=== PATIENT | male | born 1965 | race Caucasian/White ===

== ENCOUNTER → 2021-02-01 11:57 | Outpatient (CLI) | payer OTHER, SELFPAY ==
[2021-02-01 12:36] LABS: Add Manual Diff / Slide Review NO; Basophils Absolute Auto 100 /uL (0-100); Basophils Percent Auto 1.9 % (0-2); Eosinophils Absolute Auto 100 /uL (0-450); Eosinophils Percent Auto 2.6 % (2-4); Hematocrit 43.5 % (41-53); Hemoglobin 14.6 g/dL (13.5-17.5); Lymphocytes Absolute Auto 1800 /uL (1100-4500); Lymphocytes Percent Auto 33.4 % (25-40); Mean Corpuscular HGB Conc 33.5 % (30-36); Mean Corpuscular Hemoglobin 29.4 PG (26-34); Mean Corpuscular Volume 87.7 fL (80-100); Monocytes Absolute Auto 400 /uL (0-900); Monocytes Percent Auto 8.2 % (3-14); Neutrophils Absolute Auto 2900 /uL (1500-7000); Neutrophils Percent Auto 53.9 % (50-75); Platelet Count 180 X10^3/uL (150-400); Red Blood Cell Count 4.96 X10^6/uL (4.5-5.9); Red Cell Distribution Width 13.7 % (11.6-14.8); White Blood Cell Count 5.4 X10^3/uL (4.5-11.0)
[2021-02-01 13:08] LABS: Alanine Aminotransferase 28 IU/L (<50); Albumin 4.2 g/dL (3.5-5.0); Albumin Globulin Ratio 1.6 (1.0-2.8); Alkaline Phosphatase 54 U/L (38-126); Aspartate Aminotransferase 35 IU/L (17-59); BUN Creatinine Ratio 21.3 (6-22); Bilirubin Total 0.3 mg/dL (0.2-1.3); Blood Urea Nitrogen 16 mg/dL (9-20); Calcium 9.3 mg/dL (8.4-10.2); Carbon Dioxide 29 mmol/L (22-32); Chloride 103 mmol/L (98-107); Cholesterol 174 mg/dL (140-199); Estimated Glomerular Filt Rate > 60.0 mL/min (>60); Globulin 2.7 g/dL (1.7-4.1); Glucose 84 mg/dL (70-100); HDL Cholesterol 65 mg/dL (40-60); HEMOLYSIS < 15 (0-50); LDL Cholesterol Calculated 98 mg/dL (<100); Potassium 4.5 mmol/L (3.4-5.1); Sodium 136 mmol/L (137-145); Total Protein 6.9 g/dL (6.3-8.2); Triglycerides 54 mg/dL (35-150)
[2021-02-01 14:26] LABS: Thyroid Stimulating Hormone 1.82 uIU/mL (0.47-4.68)
== END ==
PROVIDERS: PCP Family Medicine; Referring Provider Family Medicine; Visit Provider Family Medicine
DX: Z13.220 Encounter for screening for lipoid disorders (principal)
CPT/HCPCS: 36415; 80053; 80061; 84443; 85025

== ENCOUNTER → 2021-03-08 11:02 | Outpatient (CLI) | payer OTHER, SELFPAY ==
[2021-03-08 14:25] LABS: COVID19 -Nasal RAPID Negative (Negative)
== END ==
PROVIDERS: PCP Family Medicine; Visit Provider Surgery
DX: Z20.822 Contact with and (suspected) exposure to COVID-19 (principal)
CPT/HCPCS: 87635; C9803

== ENCOUNTER 2021-03-09 08:13 | Day surgery (SDC) | payer OTHER, SELFPAY ==
[2021-03-09] VITALS (7 sets, daily range): BP systolic 99–131; BP diastolic 67–85; PULSE 74–97; RESP 10–18; TEMP 36.1–36.8; O2SAT 95–99; BMI 21.7
[2021-03-09] MEDS: LACTATED RINGERS 1,000 ML 100 ML IV (08:43)
--- NOTE | 2021-03-09 08:56 | PM.HP.1 ---
History of Present Illness History of Present Illness Date Patient Seen: 03/09/21 Time Patient Seen: 09:06 Chief complaint: SCREENING COLONOSCOPY Narrative: First colonoscopy, asymptomatic and no family history of colon cancer. Patient History Family & Social History Social History: household members family Tobacco & Substance use: Smoking Status Never smoker alcohol intake current alcohol intake frequency a few times a week Substance Use Type does not use Meds Home Medications and Allergies Home Medications Medication Instructions Recorded Confirmed Type No Known Home Medications 02/01/21 03/09/21 History Allergies Allergy/AdvReac Type Severity Reaction Status Date / Time No Known Drug Allergies Allergy Verified 02/01/21 11:16 Review of Systems Review of Systems Narrative: no cough, no change in bowel habits. no weight loss ROS: Yes All systems reviewed with the patient and are negative except as otherwise documented Exam Vital Signs (past 8 hours): - 03/09/21 08:30 Temperature 97.9 F Pulse Rate 97 H Respiratory Rate 12 Blood Pressure 131/85 Pulse Oximetry 95 Oxygen Delivery Method Room Air Const General: cooperative and healthy appearing [facility] Head: normocephalic and atraumatic Eyes General: appearance normal, both eyes and all related structures Conjunctivae: conjunctivae normal Neck Neck: trachea midline Resp Effort & Inspection: normal respiratory effort and able to speak in complete sentences Auscultation: clear to auscultation bilaterally Cardio Rate: regular rate Rhythm: regular rhythm GI Inspection: normal to inspection Palpation: soft Skin General: no rashes or lesions noted Neuro General: patient alert, patient awake and patient oriented x3 Extrem General: normal to inspection and full ROM Psych Appearance: grossly normal Judgment: judgment good Assessment & Plan Assessment & Plan narrative: screening colonoscopy low risk. Moderate sedation COVID-19 COVID-19 status: Negative Time Spent With Patient Time with patient: less than 15 minutes
--- NOTE | 2021-03-09 09:08 | PM.OP.ENDO ---
Operative Date/Time/Diagnoses Date of procedure: 03/09/21 Time of procedure: 09:10 Pre-op diagnosis: screening colonoscopy. ASA 1 Post-op diagnosis: same Procedure & Clinicians Study performed: colonoscopy with moderate sedation Same procedure as scheduled: Yes Indications: screening colonoscopy Surgeon: Elle Perez Procedure Notes SCOAP/Timeout: done prior to sedation Procedure in detail: Prep diagnosis: Screening colonoscopy Postop diagnosis: Same Operative procedure: Colonoscopy with moderate sedation Surgeon: Jennifer Perez MD Findings: Normal colonoscopy. Excellent bowel prep. ASA: 1 Anesthetic: Fentanyl and Versed, see nurse's note for dosing. Procedure: Patient placed in lateral position. Rectal exam performed showing normal tone, no masses. Scope was inserted into the rectum and advanced to the ileocecal valve with minimal difficulty. Insufflation and extraction of the scope, including retroflex in the rectum, shows normal colonoscopy. Impression: No polyps, no diverticuli. Plan: Repeat colonoscopy in 10 years unless otherwise indicated by change in clinical condition or family history Scope withdrawal time: 5 min Sedation minutes: 6 Specimen(s): none sent Complications: none Impression: no polyps, no diverticula. sensitive colon to pressure demonstrated by vagaling Post-procedure Recommendations: Colonscopy in 10 years and Continue medication(s) Plan for aftercare: home. no restrictions Follow up: as needed Disposition: PACU
[2021-03-09] MEDS: fentaNYL 250 MCG/5 ML INJ IV (09:13)
[2021-03-09] MEDS: MIDAZOLAM 5 MG/5 ML VIAL IV (09:14)
== END 2021-03-09 10:51 | disposition home or self-care (01) ==
PROVIDERS: PCP Family Medicine; Referring Provider Surgery; Visit Provider Surgery
PROC: 0DJD8ZZ Inspection of Lower Intestinal Tract, Via Natural or Artificial Opening Endoscopic (ICD-10-PCS; CPT 45378; principal; 2021-03-09 09:15)
DX: Z12.11 Encounter for screening for malignant neoplasm of colon (principal)
CPT/HCPCS: 45378; 99152; J2250; J3010

== ENCOUNTER 2023-11-09 10:56 | Emergency (ER) | payer OTHER, SELFPAY ==
[2023-11-09 11:18] VITALS: BP 135/85; PULSE 87; RESP 18; TEMP 36.6; O2SAT 99; BMI 21.9
[2023-11-09] MEDS: KETOROLAC 30 MG/ML VIAL IM (11:58)
--- NOTE | 2023-11-09 12:15 | DI.CT.S_ITS ---
PROCEDURE: CT LUMBAR SPINE WO CON INDICATIONS: low back pain, hx bulging disc, no LE weakness/numbness TECHNIQUE: Noncontrast 3 mm thick sections acquired from the T12 level to the sacrum. Sagittal and coronal reformats were constructed. For radiation dose reduction, the following was used: automated exposure control. COMPARISON: None. FINDINGS: Image quality: Excellent. Bones: There is normal bony alignment. No acute vertebral body compression fractures. No suspicious lytic or blastic bony lesions. No pars defects. There is a probable peripherally calcified disc extrusion within the right lateral recess at L4-L5. Multilevel disc space narrowing and endplate osteophyte formation. Soft tissues: No retroperitoneal masses or hematomas. Visualized aorta is normal in caliber. IMPRESSION: 1. Probable L4-L5 disc extrusion with associated neural compression. Nonemergent outpatient follow-up MRI is recommended for further assessment. No further emergent imaging is indicated. Dictated by: Gigi Guidry M.D. on 11/09/2023 at 12:39 Approved by: Gigi Guidry M.D. on 11/09/2023 at 12:40
--- NOTE | 2023-11-09 12:34 | PC.NURSE ---
sensation, circulation, movement intact. Able to get on and off the floor without assist.
--- NOTE | 2023-11-09 12:54 | ED.BACK ---
HPI - Back Pain/Injury <Flores Willett PA-C - Last Filed: 11/09/23 15:40> General Chief Complaint: Back Pain/Injury Stated Complaint: lower back pain Time Seen by Provider: 11/09/23 11:42 Source: patient History of Present Illness HPI Narrative: Patient is a 58-year-old male who reports a bulging disc and spine surgery approximately 20 years ago. His last spinal imaging was prior to the surgery. Over the past 20 years, he has had intermittent flares of low back pain which he treats with rest, stretching, and a lumbar brace. Yesterday afternoon his back started acting up, he does not know of any precipitating factors or injury. Overnight and this morning he took several low doses of Tylenol and ibuprofen without much relief. He also notes minimal appetite last night and did not eat anything this morning. He felt nauseous in the waiting room and vomited once in triage. Denies fever or chills. Denies numbness, tingling, shooting pains or weakness in his lower he is. He denies loss of bowel or bladder control or saddle anesthesia. He has no urinary symptoms and denies history of kidney stones. Related Data Previous Rx's Medication Instructions Recorded cyclobenzaprine 5 mg tablet 5 mg PO TID PRN muscle spasm #14 11/09/23 tabs ondansetron 4 mg disintegrating 4 mg PO Q6-8H PRN nausea and 11/09/23 tablet vomiting #10 tabs oxycodone 5 mg tablet 5 mg PO Q4-6H PRN pain #10 tabs 11/09/23 Allergies Allergy/AdvReac Type Severity Reaction Status Date / Time No Known Drug Allergies Allergy Verified 11/09/23 11:30 Review of Systems <Flores Willett PA-C - Last Filed: 11/09/23 15:40> Review of Systems ROS Unobtainable: All systems reviewed & are unremarkable except as noted in HPI and below Patient History <Flores Willett PA-C - Last Filed: 11/09/23 15:40> Social History marital status: unmarried,single household members: family Smoking Status: Never smoker alcohol intake: current substance use type: does not use Smoking Status: Never smoker alcohol intake frequency: a few times a week Substance Use Type: does not use Exam <Flores Willett PA-C - Last Filed: 11/09/23 15:40> Narrative Exam Narrative: GENERAL: 58 year old patient appears stated age. Well-developed patient, found kneeling on the floor, wearing back brace. NEURO: AOx3. HEAD: Atraumatic. Normocephalic. EYES: Pupils equal round and reactive. Extraocular motions intact. No scleral icterus. No injection or drainage. ENT: Nose without bleeding or purulent drainage. Airway patent. NECK: Trachea midline. Non tender CARDIOVASCULAR: Regular rate and rhythm without murmurs, gallops, or rubs. RESPIRATORY: Clear to auscultation. Breath sounds equal bilaterally. No wheezes, rales, or rhonchi. GASTROINTESTINAL: Abdomen soft, non-tender, nondistended. EXTREMITIES: No edema or joint tenderness. SKIN: No rash or erythema of visible areas SPINE: No midline tenderness or step-offs. Well healed midline lumbar surgical scar. Focal tenderness over the right low back and SI joint. This area is tender to palpation although he notes the pain is deeper inside. Patient ambulates steadily. 5/5 strength in his bilateral lower extremities with good pulses, normal capillary refill, sensation intact. Initial Vital Signs Initial Vital Signs: Vital Signs Temperature 98 F 11/09/23 11:18 Pulse Rate 87 11/09/23 11:18 Respiratory Rate 18 11/09/23 11:18 Blood Pressure 135/85 11/09/23 11:18 Pulse Oximetry 99 11/09/23 11:18 Oxygen Delivery Method Room Air 11/09/23 11:18 <Didi Malone DO - Last Filed: 11/10/23 07:44> Initial Vital Signs Initial Vital Signs: Vital Signs Temperature 98 F 11/09/23 11:18 Pulse Rate 87 11/09/23 11:18 Respiratory Rate 18 11/09/23 11:18 Blood Pressure 135/85 11/09/23 11:18 Pulse Oximetry 99 11/09/23 11:18 Oxygen Delivery Method Room Air 11/09/23 11:18 Course <Flores Willett PA-C - Last Filed: 11/09/23 15:40> Orders Ordered: Discontinued Medications Sodium Chloride (Normal Saline 0.9%) 1,000 mls @ 1,000 mls/hr IV BOLUS ONE Stop: 11/09/23 14:35 Last Infusion: 11/09/23 15:00 Dose: Infused Documented By: Admin: 11/09/23 13:50 Dose: 1,000 mls/hr Documented By: JOSEFINA Ketorolac Tromethamine (Ketorolac 30 Mg/Ml Vial) 30 mg IM NOW ONE Stop: 11/09/23 11:54 Last Admin: 11/09/23 11:58 Dose: 30 mg Documented By: STEPHANIE Metoclopramide HCl (Metoclopramide 10 Mg/2 Ml Inj) 10 mg IV NOW ONE Stop: 11/09/23 13:37 Last Admin: 11/09/23 13:49 Dose: 10 mg Documented By: JOSEFINA Ondansetron HCl (Ondansetron 4 Mg Odt) 4 mg PO NOW ONE Stop: 11/09/23 12:59 Last Admin: 11/09/23 13:01 Dose: 4 mg Documented By: STEPHANIE Vital Signs Vital signs: Vital Signs - 8 hr 11/09/23 11:18 11/09/23 15:21 Temperature 98 F Pulse Rate 87 88 Respiratory Rate 18 14 Blood Pressure 135/85 133/78 Pulse Oximetry 99 97 Oxygen Delivery Method Room Air Room Air <Didi Malone DO - Last Filed: 11/10/23 07:44> Orders Ordered: Discontinued Medications Sodium Chloride (Normal Saline 0.9%) 1,000 mls @ 1,000 mls/hr IV BOLUS ONE Stop: 11/09/23 14:35 Last Infusion: 11/09/23 15:00 Dose: Infused Documented By: Admin: 11/09/23 13:50 Dose: 1,000 mls/hr Documented By: JOSEFINA Ketorolac Tromethamine (Ketorolac 30 Mg/Ml Vial) 30 mg IM NOW ONE Stop: 11/09/23 11:54 Last Admin: 11/09/23 11:58 Dose: 30 mg Documented By: STEPHANIE Metoclopramide HCl (Metoclopramide 10 Mg/2 Ml Inj) 10 mg IV NOW ONE Stop: 11/09/23 13:37 Last Admin: 11/09/23 13:49 Dose: 10 mg Documented By: JOSEFINA Ondansetron HCl (Ondansetron 4 Mg Odt) 4 mg PO NOW ONE Stop: 11/09/23 12:59 Last Admin: 11/09/23 13:01 Dose: 4 mg Documented By: STEPHANIE Vital Signs Vital signs: Vital Signs - 8 hr 11/09/23 11:18 11/09/23 15:21 Temperature 98 F Pulse Rate 87 88 Respiratory Rate 18 14 Blood Pressure 135/85 133/78 Pulse Oximetry 99 97 Oxygen Delivery Method Room Air Room Air MDM - Back Pain/Injury <Flores Willett PA-C - Last Filed: 11/09/23 15:40> Lab Data 11/09/23 13:45 11/09/23 13:45 Labs: Lab Results 11/09/23 11/09/23 11/09/23 Range/Units 13:45 14:40 15:00 WBC 9.5 (4.5-11.0) X10^3/uL RBC 5.58 (4.5-5.9) X10^6/uL Hgb 16.9 (13.5-17.5) g/dL Hct 49.6 (41-53) % MCV 88.8 (80-100) fL MCH 30.3 (26-34) PG MCHC 34.1 (30-36) % RDW 13.3 (11.6-14.8) % Plt Count 241 (150-400) X10^3/uL Neut % (Auto) 74.8 (50-75) % Lymph % (Auto) 21.3 L (25-40) % [place] % (Auto) 2.9 L (3-14) % Eos % (Auto) 0.4 L (2-4) % Baso % (Auto) 0.6 (0-2) % Neut # (Auto) 7100 H (4331-6978) /uL Lymph # (Auto) 2000 (4236-3257) /uL [place] # (Auto) 300 (0-900) /uL Eos # (Auto) 0 (0-450) /uL Baso # (Auto) 100 (0-100) /uL Sodium 137 (137-145) mmol/L Potassium 4.3 (3.4-5.1) mmol/L Chloride 100 (98-107) mmol/L Carbon Dioxide 27 (22-32) mmol/L BUN 15 (9-20) mg/dL Creatinine 0.80 (0.66-1.25) mg/dL Estimated GFR > 60 (>60) mL/min BUN/Creatinine Ratio 18.8 (6-22) Glucose 119 H (70-100) mg/dL Calcium 10.3 H (8.4-10.2) mg/dL Total Bilirubin 1.0 (0.2-1.3) mg/dL AST 38 (17-59) IU/L ALT 30 (<50) IU/L Alkaline Phosphatase 79 (38-126) U/L Total Protein 8.9 H (6.3-8.2) g/dL Albumin 5.0 (3.5-5.0) g/dL Globulin 3.9 (1.7-4.1) g/dL Albumin/Globulin Ratio 1.3 (1.0-2.8) Lipase 109 (23-300) U/L Urine RBC 0-1/hpf (0-5/HPF) Urine WBC 0-1/hpf (0-5/HPF) Ur Squamous Epith Cells 1-5 /hpf (0-5/HPF) Urine Bacteria Few (2-10) H (None) Ur Culture Indicated? Cult not indicated SARS-CoV-2 (PCR) Negative (Negative) Urine Dip Bedside Urine Glucose Negative Bedside Urine Bilirubin - Negative Bedside Urine Ketone ++ 40 Urine Specific [place] 1.020 Bedside Urine Occult Blood - Negative Bedside Urine pH 6.5 Bedside Urine Protein +/- 15 Bedside Urine Urobilinogen - Negative Bedside Urine Nitrite - Negative Bedside Urine Leukocytes - Negative Esterase Imaging Data CT lumbar: Radiologist's Impression: PROCEDURE: CT LUMBAR SPINE WO CON INDICATIONS: low back pain, hx bulging disc, no LE weakness/numbness TECHNIQUE: Noncontrast 3 mm thick sections acquired from the T12 level to the sacrum. Sagittal and coronal reformats were constructed. For radiation dose reduction, the following was used: automated exposure control. COMPARISON: None. FINDINGS: Image quality: Excellent. Bones: There is normal bony alignment. No acute vertebral body compression fractures. No suspicious lytic or blastic bony lesions. No pars defects. There is a probable peripherally calcified disc extrusion within the right lateral recess at L4-L5. Multilevel disc space narrowing and endplate osteophyte formation. Soft tissues: No retroperitoneal masses or hematomas. Visualized aorta is normal in caliber. IMPRESSION: 1. Probable L4-L5 disc extrusion with associated neural compression. Nonemergent outpatient follow-up MRI is recommended for further assessment. No further emergent imaging is indicated. Dictated by: Gigi Guidry M.D. on 11/09/2023 at 12:39 Approved by: Gigi Guidry M.D. on 11/09/2023 at 12:40 MDM Narrative Medical decision making narrative: Multiple etiologies for patient's symptoms considered including, but not limited to: Fracture, dislocation, disc herniation, cauda equina. Patient has no fever or headache concerning for meningitis. Patient has no lower extremity weakness, saddle anesthesia loss control of bowel or bladder concerning for cauda equina. He has no history of trauma to suggest fracture. Discussed limitations of imaging modalities available in the emergency room based on his symptoms. Patient would like to go ahead and obtain a CT of his lumbar spine to gather more information as he is not had spinal imaging in many years. CT of the lumbar spine shows L4-L5 disc extrusion with accompanying neural compression. An outpatient MRI is recommended. Discussed these findings with the patient. He is disappointed that he can not get an MRI today in the emergency room but understands that he will need to follow up with his primary care, who he is not seen in several years but has an appointment with next week. At this time, patient started vomiting. He reports first feeling nauseous in the waiting room and vomited once prior in triage. He was given ondansetron but continued to vomit. He denies abdominal pain, CVA tenderness, diarrhea or constipation. Decision made to administer IV fluids, metoclopramide and obtain labs and urine. His urine does not have any blood in it or evidence of infection. He has no history of kidney stones. Discussed evaluating with CT for possible kidney stones, although I think this is unlikely given no past history and no blood in his urine, in case this is what is causing some of his more severe pain and nausea. Patient feels like he would like to wait on this. He feels okay to discharge home with pain medication including oxycodone, cyclobenzaprine and nausea medication. Patient advised that if he continues to worsen, develops new symptoms, if his pain is not under control or he has intractable nausea the we will need to return to the emergency room. I did contact Dr. Guzman's team to notify them the patient was in the emergency room and request a timely follow-up to discuss outpatient MRI. Patient also requested a COVID test, although he has no known exposures and no symptoms aside from back pain and nausea. Rapid COVID test was done and was negative. Patient's symptoms improved over duration of stay with above-stated therapies. Findings and discharge diagnosis discussed with patient/family followed by verbalization of understanding Return precautions discussed with patient/family whom verbalize understanding of diagnosis and plan <Didi Malone, DO - Last Filed: 11/10/23 07:44> Lab Data Labs: Lab Results 11/09/23 11/09/23 11/09/23 Range/Units 13:45 14:40 15:00 WBC 9.5 (4.5-11.0) X10^3/uL RBC 5.58 (4.5-5.9) X10^6/uL Hgb 16.9 (13.5-17.5) g/dL Hct 49.6 (41-53) % MCV 88.8 (80-100) fL MCH 30.3 (26-34) PG MCHC 34.1 (30-36) % RDW 13.3 (11.6-14.8) % Plt Count 241 (150-400) X10^3/uL Neut % (Auto) 74.8 (50-75) % Lymph % (Auto) 21.3 L (25-40) % [place] % (Auto) 2.9 L (3-14) % Eos % (Auto) 0.4 L (2-4) % Baso % (Auto) 0.6 (0-2) % Neut # (Auto) 7100 H (2533-7681) /uL Lymph # (Auto) 2000 (7898-9234) /uL [place] # (Auto) 300 (0-900) /uL Eos # (Auto) 0 (0-450) /uL Baso # (Auto) 100 (0-100) /uL Sodium 137 (137-145) mmol/L Potassium 4.3 (3.4-5.1) mmol/L Chloride 100 (98-107) mmol/L Carbon Dioxide 27 (22-32) mmol/L BUN 15 (9-20) mg/dL Creatinine 0.80 (0.66-1.25) mg/dL Estimated GFR > 60 (>60) mL/min BUN/Creatinine Ratio 18.8 (6-22) Glucose 119 H (70-100) mg/dL Calcium 10.3 H (8.4-10.2) mg/dL Total Bilirubin 1.0 (0.2-1.3) mg/dL AST 38 (17-59) IU/L ALT 30 (<50) IU/L Alkaline Phosphatase 79 (38-126) U/L Total Protein 8.9 H (6.3-8.2) g/dL Albumin 5.0 (3.5-5.0) g/dL Globulin 3.9 (1.7-4.1) g/dL Albumin/Globulin Ratio 1.3 (1.0-2.8) Lipase 109 (23-300) U/L Urine RBC 0-1/hpf (0-5/HPF) Urine WBC 0-1/hpf (0-5/HPF) Ur Squamous Epith Cells 1-5 /hpf (0-5/HPF) Urine Bacteria Few (2-10) H (None) Ur Culture Indicated? Cult not indicated SARS-CoV-2 (PCR) Negative (Negative) Urine Dip Bedside Urine Glucose Negative Bedside Urine Bilirubin - Negative Bedside Urine Ketone ++ 40 Urine Specific [place] 1.020 Bedside Urine Occult Blood - Negative Bedside Urine pH 6.5 Bedside Urine Protein +/- 15 Bedside Urine Urobilinogen - Negative Bedside Urine Nitrite - Negative Bedside Urine Leukocytes - Negative Esterase Discharge Plan Departure Patient Disposition: Home Clinical Impression: Low back pain Qualifiers: Chronicity: acute Back pain laterality: bilateral Sciatica presence: without sciatica Qualified Code(s): M54.50 - Low back pain, unspecified Instructions: DI for Low Back Pain Activity Restrictions/Additional Instructions: *You have been diagnosed with acute low back pain. Your CT shows: Probable L4-L5 disc extrusion with associated neural compression. Nonemergent outpatient follow-up MRI is recommended for further assessment. No further emergent imaging is indicated. I have sent a message to Dr. Guzman's office to see if they can schedule use sooner for follow up with the primary care doctor. They will reach out to you. In the meantime, I suggest ice, rest, gentle stretching, walking as tolerated. I will send prescriptions for eye muscle relaxer as well as an opiate pain medication to your pharmacy. Please take Tylenol and ibuprofen in addition and save the opiate medicine for more severe pain. It is generally safe to take 3-4 g of Tylenol over 24 hour period and 2400 mg of ibuprofen over 24 hours. You have been prescribed a short course of narcotic medications. These are potentially dangerous and addictive medications that should be used carefully. While on these medications you cannot drive or operate heavy machinery. Do not drink alcohol or use other sedative medications while you are taking this medication. Additionally, you cannot sign legal documents or perform any duties such as this. Many people get constipated on narcotic medications so it would be advisable to discuss stool softeners with the pharmacist when you tow picker your prescription. Please understand that we cannot provide further refills of narcotics or controlled substances through the ED and your pain management will need to be through your Primary Care Provider. *What to do: *Please continue to take your regular medications as directed. [x] New medication prescriptions sent to your pharmacy: [ [facility]] [ ] New medication written as a paper prescription [ ] No new medications given *Please follow up with your primary care provider in 2-3 days, call for an appointment. Let them know you were seen in the Emergency Department and that we ask that you be seen in follow up. We will electronically transmit a record of today's note if your PCP is in our system *If you do not have a primary care provider please contact the [facility] Resource line at [phone]. They will ask some questions about your medical history and help get you set up with a doctor in the community. *Return to Emergency Department if you should have any new, worsening or concerning symptoms, such as [fever greater than 101 F, shaking chills, worsening pain, persistent vomiting or other concerning symptoms]. Prescriptions: New cyclobenzaprine 5 mg tablet 5 mg PO TID PRN (Reason: muscle spasm) Qty: 14 0RF oxycodone 5 mg tablet 5 mg PO Q4-6H PRN (Reason: pain) Qty: 10 0RF ondansetron 4 mg tablet,disintegrating 4 mg PO Q6-8H PRN (Reason: nausea and vomiting) Qty: 10 0RF Referrals: Francisco Guzman MD [Primary Care Provider] - Stand Alone Forms: Patient Portal/API ED Sign-out <Didi Malone DO - Last Filed: 11/10/23 07:44> Cosign ED Attending Cosignature Attestation: I was available for consultation.
--- NOTE | 2023-11-09 12:58 | PC.NURSE ---
Pt w/ vomiting for undigested food / phlem. Pt denies abd pain/fever/diaphorisis/sob. States he does not usually get vomiting w/ pain. ERWIN Willett made aware and order obtained for zofran. Pt appears well other than pain in back.
[2023-11-09] MEDS: ONDANSETRON 4 MG ODT PO (13:01)
--- NOTE | 2023-11-09 13:45 | PC.NURSE ---
Pt continues to vomit after zofran. Will start IV and give more medications
[2023-11-09] MEDS: METOCLOPRAMIDE 10 MG/2 ML INJ IV (13:49)
[2023-11-09] MEDS: SODIUM CHLORIDE 0.9% 1,000 ML 1000 ML IV (13:50)
[2023-11-09 13:58] LABS: Add Manual Diff / Slide Review NO; Basophils Absolute Auto 100 /uL (0-100); Basophils Percent Auto 0.6 % (0-2); Eosinophils Absolute Auto 0 /uL (0-450); Eosinophils Percent Auto 0.4 % (2-4); Hematocrit 49.6 % (41-53); Hemoglobin 16.9 g/dL (13.5-17.5); Lymphocytes Absolute Auto 2000 /uL (1100-4500); Lymphocytes Percent Auto 21.3 % (25-40); Mean Corpuscular HGB Conc 34.1 % (30-36); Mean Corpuscular Hemoglobin 30.3 PG (26-34); Mean Corpuscular Volume 88.8 fL (80-100); Monocytes Absolute Auto 300 /uL (0-900); Monocytes Percent Auto 2.9 % (3-14); Neutrophils Absolute Auto 7100 /uL (1500-7000); Neutrophils Percent Auto 74.8 % (50-75); Platelet Count 241 X10^3/uL (150-400); Red Blood Cell Count 5.58 X10^6/uL (4.5-5.9); Red Cell Distribution Width 13.3 % (11.6-14.8); White Blood Cell Count 9.5 X10^3/uL (4.5-11.0)
[2023-11-09 14:26] LABS: Alanine Aminotransferase 30 IU/L (<50); Albumin Globulin Ratio 1.3 (1.0-2.8); Alkaline Phosphatase 79 U/L (38-126); Aspartate Aminotransferase 38 IU/L (17-59); BUN Creatinine Ratio 18.8 (6-22); Blood Urea Nitrogen 15 mg/dL (9-20); Calcium 10.3 mg/dL (8.4-10.2); Carbon Dioxide 27 mmol/L (22-32); Chloride 100 mmol/L (98-107); Estimated Glomerular Filt Rate > 60 mL/min (>60); Globulin 3.9 g/dL (1.7-4.1); Glucose 119 mg/dL (70-100); HEMOLYSIS < 15 (0-50); Lipase 109 U/L (23-300); Potassium 4.3 mmol/L (3.4-5.1); Sodium 137 mmol/L (137-145); Total Protein 8.9 g/dL (6.3-8.2)
[2023-11-09 15:16] LABS: Bacteria Urine Few (2-10); Culture Indicated Urine Cult Not Indicated; RBC Urine 0-1/HPF (0-5/HPF); Squamous Epithelial Cell Urine 1-5 /HPF (0-5/HPF); WBC Urine 0-1/HPF (0-5/HPF)
[2023-11-09 15:19] LABS: COVID19 -Nasal RAPID Negative (Negative)
[2023-11-09 15:21] VITALS: BP 133/78; PULSE 88; RESP 14; O2SAT 97
== END 2023-11-09 15:21 | disposition home or self-care (01) ==
PROVIDERS: Emergency Provider Physician Assistant; PCP Family Medicine
DX: M54.50 Low back pain, unspecified (principal)
CPT/HCPCS: 36415; 72131; 80053; 81003; 81015; 83690; 85025; 87635; 96361; 96372; 96374; 99284; C9803; J1885; J2765

== ENCOUNTER 2024-01-01 08:15 | Outpatient (RCR) | payer OTHER, SELFPAY ==
--- NOTE | 2023-12-22 17:33 | PT.OIE ---
Current Diagnoses Radiculopathy, lumbar region (12/22/23) Low back pain, unspecified (12/22/23) Anesthesia of skin (12/22/23) Other specified postprocedural states (12/22/23) Visit Care Team Role Provider Type Francisco Guzman MD Attending Provider Physician Family Provider Primary Care Provider Referring Provider Specialty: [facility] Practice Address: [address] [place] [address], [address], [facility] Email: [email or web address] Physical Therapy Initial Evaluation PT-OP-A Visit Information Start: 12/22/23 12:14 Freq: Status: Active Protocol: Document 12/22/23 13:06 NM (Rec: 12/22/23 14:19 NM [id number]) Out-Patient Physical Therapy Visit Information Visit Information Visit Type Initial Evaluation Visit Start Time 13:05 Visit Stop Time 13:45 Visit Number 1 Evaluation Information Evaluation Date 12/22/23 Precautions Precautions hx lumbar surgery PT-OP-B Current Condition Start: 12/22/23 12:14 Freq: Status: Active Protocol: Document 12/22/23 13:06 NM (Rec: 12/22/23 14:19 NM [id number]) Current Condition History of Current Condition Onset Date October 2023 Current Complaints pain, muscle spasms, decreased activity tolerance History of Current Condition Pt presents with low back pain beginning in October 2023. His back just spasmed and led to unbelievable B pain. He reports that he was in bed; he was unable to sit up, he had to crawl out of bed and on the ground. He was unable to walk for 4 days, only crawl, reaching up he felt like a disc exploded. He had numbness and tingling in his R glute; numb 7-10 days in R hip/glute. He began vomiting He went to the ED, did a CT ( looks normal). He went home and a couple of days later, everything felt fine. He reports that he has different symptoms now. Beltline pain ( just below) on the L side, beginning 2-3 days ago. He now feels like he's 95% better. He is using an inversion table , stretching, walking, exercise bike. He reports that he still has a little decreased sensation. Hx of back injuries in high school, Nov 2007 microdiscectomy L1-L2 . He is very active (snow mobile, mtn bike) PT-OP-C Subjective Start: 12/22/23 12:14 Freq: Status: Active Protocol: Document 12/22/23 13:06 NM (Rec: 12/22/23 14:19 NM [id number]) OP-PT Subjective Patient Comments Patient Comments see hx above for pt report Patient Questionnaires Oswestry Low Back Index Oswestry Score 20/50 OP-PT Pain Assessment Pain Assessment Grid Paper Pain Assessment Grid Completed Yes Location Lumbar spine Pain Location Details L beltline pain near L4-5 Intensity 0 Scale Used Numeric (0 - 10) Description Sharp Description- Other worst 3/10 Frequency Intermittent Radiating Location none, local Pain Aggravating Factors Position,Changing Position, Walking,Bending,Lifting, Coughing Other Pain Aggravating Factors extension, posture, twisting Pain Alleviating Factors Medication Other Pain Alleviating Factors flexion, inversion table, stretches Home Pain Medication Use Pain Medications Used Yes: ibuprofen PT-OP-E Functional Tests Start: 12/22/23 12:14 Freq: Status: Active Protocol: Document 12/22/23 13:06 NM (Rec: 12/22/23 17:24 NM [id number]) Functional Tests 30 Second Sit to Stand Test Score 21 Comments no pain reported Other Forward Trunk Flexion Test Name of Test measured fingertips to floor, legs straight Score 8 Comment reports hamstring stretch PT-OP-F Manual Assessment Start: 12/22/23 12:14 Freq: Status: Active Protocol: Document 12/22/23 13:06 NM (Rec: 12/22/23 17:24 NM [id number]) Manual Assessments Soft Tissue Assessment Soft Tissue Mobility Assessment Decreased B hamstring length. Minimal soft tissue restrictions of B lumbar paraspinals, including QL/ erector spinae. Joint Mobility Assessment Joint Mobility Assessment Minimal tenderness reported with posterior-anterior springing of lumbar spinous processes near L4-L5, normal mobility. Full trunk mobility PT-OP-G Mobility & Gait Start: 12/22/23 12:14 Freq: Status: Active Protocol: Document 12/22/23 13:06 NM (Rec: 12/22/23 17:24 NM [id number]) OP Gait Assessment Gait Gait Assistance Required: Independent Distance (Feet) 150 Assistive Devices Assistive Device None Gait Deviations General Gait Pattern Lateral Trunk Lean Factors Limiting Gait Function Factors Limiting Gait Function Pain Comments Gait Comments Slight L trunk shift PT-OP-H Neuro Start: 12/22/23 12:14 Freq: Status: Active Protocol: Document 12/22/23 13:06 NM (Rec: 12/22/23 17:24 NM [id number]) Sensation Evaluation Gross Sensation Sensation Description Paresthesia Comments Summary Comments Decreased light touch sensation along R lateral hip and glute, all other dermatomes are bilaterally and equally intact to light touch sensation PT-OP-J Posture/Palpation/Skin Start: 12/22/23 12:14 Freq: Status: Active Protocol: Document 12/22/23 13:06 NM (Rec: 12/22/23 17:24 NM [id number]) Posture Evaluation Position Standing Evaluation View Lateral Head/C-Spine Posture Forward Head Thorax Posture (R) Prominent L-Spine Posture Increased Lordosis,Shifted Left Shoulder Posture (L) Forward,(R) Forward Pelvis Posture Anteriorly Tilted Weight Distribution Balanced Hip Posture (L) Externally Rotated,(R) Externally Rotated Knee Posture (L) Genu Valgus,(R) Genu Valgus Patellar Posture (L) Superior,(R) Superior Palpation Assessment Location Lumbar spine Palpation Location paraspinals, glutes Palpation Findings Soft Tissue Tightness,Spasm Palpation Details Lumbar paraspinals with mild spasm to palpation, L>R. Minimal tenderness at L4-L5, L >R Skin Assessment Incisional Assessment Incision Appearance/Comments Incision from previous surgery near lower lumbar spine PT-OP-K Range of Motion Start: 12/22/23 12:14 Freq: Status: Active Protocol: Document 12/22/23 13:06 NM (Rec: 12/22/23 17:24 NM [id number]) Lumbar Spine Range of Motion Lumbar Spine Active Percentage Testing Position Standing Flexion 80 Extension 100 Rotation Left 8 Rotation Right 8 Lateral Flexion Left 75 Lateral Flexion Right 100 ROM Limitations Soft Tissue Tightness,Pain Comments L lateral flexion to 75% of thigh, reproduces pain in L lumbar spine. Pain with returning to neutral after R lateral flexion. Reports hamstring stretch with lumbar flexion Hip Goniometric Range of Motion Hip ROM Limitations Comments B hamstring length: 130 deg PT-OP-L Special Tests Start: 12/22/23 12:14 Freq: Status: Active Protocol: Document 12/22/23 13:06 NM (Rec: 12/22/23 17:24 NM [id number]) Special Tests Lumbar Spine Special Tests Distraction Test Results + Comments symptom relief Straight Leg Raise Test Results + Comments bilaterally reproduces concordant pain Slump Test Results - Cantu/Quadrant Test Results - PT-OP-M Strength Start: 12/22/23 12:14 Freq: Status: Active Protocol: Document 12/22/23 13:06 NM (Rec: 12/22/23 17:24 NM [id number]) Trunk Strength Trunk Manual Muscle Testing Testing Position standing, supine Flexion 5 Normal Extension 5 Normal Rotation Left 5 Normal Rotation Right 5 Normal Lateral Flexion Left 5 Normal Lateral Flexion Right 5 Normal Comments No pain with resisted motions. 5/5 trunk flexion fwd/ obliques. Plank on elbows 30 sec before hips begin dropping . Prone trunk and extension reproduces pain Hip Strength Hip Manual Muscle Testing Right Flexion (L2) 5 Normal Extension (S1) 4 Good Abduction 5 Normal Adduction 5 Normal External Rotation 5 Normal Internal Rotation 5 Normal Comments No pain reproduced with resisted motion Left Flexion (L2) 5 Normal Extension (S1) 4 Good Abduction 4 Good Adduction 5 Normal External Rotation 5 Normal Internal Rotation 4 Good Comments Lumbar spine pain reproduced with extension and hip IR Knee Strength Knee Manual Muscle Testing Right Flexion (S2) 5 Normal Extension (L3) 5 Normal Left Flexion (S2) 5 Normal Extension (L3) 5 Normal Ankle/Foot Strength Ankle and Foot Manual Muscle Testing Left Dorsiflexion (L4) 5 Normal Plantarflexion (S1) 5 Normal Right Dorsiflexion (L4) 5 Normal Plantarflexion (S1) 5 Normal PT-OP-Q Treatments Start: 12/22/23 12:14 Freq: Status: Active Protocol: Document 12/22/23 13:06 NM (Rec: 12/22/23 17:24 NM [id number]) Therapeutic Exercises Sitting Exercises Hamstring stretch Sitting Exercise Name with gentle trunk flex, heel propped on ground Side bilateral Reps/Minutes 1x30 Comments reports good stretch, no low back pain reproduced; cued gentle stretch Self-Care/Home Management Treatment Education Patient Education Home Exercise Program,Pain Management Other Education 8 min: PT educated pt on modalities for pain relief, HEP, exam findings, POC. Pt verbalizes understanding PT-OP-T Assessment and Plan Start: 12/22/23 12:14 Freq: Status: Active Protocol: Document 12/22/23 13:06 NM (Rec: 12/22/23 17:24 NM [id number]) Physical Therapy Assessment Rehab Potential Rehabilitation Potential Good Evaluation Complexity Number of Personal Factors/Comorbidities 1-2 Number of Body Systems Impaired 1-2 Clinical Presentation at Evaluation Stable Impairments Impairments Activity Tolerance,Functional Activities,Functional Mobility ,Gait,Pain,Posture,ROM, Sensation,Soft Tissue Mobility ,Strength Goals Five Impairment ROM Impairment L lumbar lateral flexion 75% of ROM, painful Clinical Support Nurse Goal (LTG) Pt will increase L lateral flexoin AROM to >75% with pain of 3 or less in order to demonstrate improved activity tolerance and QOL LTG Duration 6 weeks Four Impairment ROM Impairment Trunk fwd flexion ROM 80% or fingers 8 from ground in standing Prison Goal (LTG) Pt will improve trunk flexion ROM to <8 from fingertips to the ground in order to demonstrate increased trunk ROM and flexibility for return to sports LTG Duration 6 weeks Three Impairment ROM Impairment B hamstring length 130 deg Prison Goal (LTG) Pt will improve B hamstring length to at least 150 deg in order for better activity tolerance LTG Duration 6 weeks Two Impairment strength Impairment plank on elbows 30 seconds Prison Goal (LTG) Pt will be able to perform a plank on elbows for at least 45 seconds in order to demonstrate improved core and lumbar extensor strength LTG Duration 6 weeks One Impairment function Impairment Oswestry 20/50 Clinical Support Nurse Goal (LTG) Pt will decrease Oswestry score by at least 9 points (1 MCID) in order to demonstrate improved activity tolerance and ROM. LTG Duration 6 weeks Assessment Summary Assessment Pt is a 58 y.o. male presenting with B lumbar spine pain beginning in October 2023. Pain is discogenic in nature, currently L>R, localized to the trunk. Pt has a hx of low back pain and a previous microdiscectomy. Lumbar flexion and L lateral flexion are the most limited ROM, with pain only with L lateral flexion. Pain is reproduced during hip extension, trunk extension in prone with hip extension, and during hip IR AROM. He is tender to palpation along L4- L5 spinous processes and demonstrates lumbar paraspinal muscle spasms. Pt has positive straight leg raise test and symptoms are relieved with distraction. Pt is very active and demonstrates good abdominal and trunk strength; he is able to perform a plank for 30 seconds. Pt has limited bilateral hamstring length, and BLE strength is within functional limits. Pt has decreased light touch sensation along R hip and glute after original episode of pain. Pt issued HEP with seated hamstring stretch. PT educated pt on modalities for pain relief, HEP, exam findings, POC; pt verbalizes understanding. Pt would benefit from skilled PT for progressive core/lumbar spine strengthening, spine and BLE mobility, education regarding body mechanics and activity modification in order to decrease pain symptoms, improve activity tolerance, and return to PLOF. Physical Therapy Plan Frequency and Duration Frequency of Treatment 1x/Week Duration of treatment (weeks) 6 Plan of Care Start Date 12/22/23 Plan of Care End Date 02/02/24 Therapeutic Interventions Therapeutic Interventions Aquatic Therapy,Gait Training, Home Exercise Program,Joint Mobilizations,Manual Therapy, Neuromuscular Re-education, Orthotic/Prosthetic Management ,Patient/Caregiver Education, Self-Care/Home Management, Sensory Integration,Soft Tissue Mobilization,Taping, Therapeutic Activities, Therapeutic Exercises Modalities Cold Pack/Ice Massage,Electric Stimulation,Hot Packs, Traction- Mechanical, Ultrasound,Vasopneumatic Devices Next Visit Focus/Plan Next Note Type Treatment Note Next Visit Plan Hamstring stretch, flexion- based strengthening (knee to chest with sb, bridge >SL bridge), core Manual: lumbar spine grade II, soft tissue, STM hamstrings and paraspinals, glutes; possible hip mobilizations
--- NOTE | 2023-12-22 17:34 | PT.OPPOC ---
Physical, Occupational & Speech Therapy At [facility] Current Diagnoses Radiculopathy, lumbar region (12/22/23) Low back pain, unspecified (12/22/23) Anesthesia of skin (12/22/23) Other specified postprocedural states (12/22/23) Visit Care Team Role Provider Type Francisco Guzman MD Attending Provider Physician Family Provider Primary Care Provider Referring Provider Specialty: Family Practice Address: [address] [place] [address], [address], [facility] Email: [email or web address] Plan Of Care PT-OP-T Assessment and Plan Start: 12/22/23 12:14 Freq: Status: Active Protocol: Document 12/22/23 13:06 NM (Rec: 12/22/23 17:24 NM [id number]) Physical Therapy Assessment Rehab Potential Rehabilitation Potential Good Evaluation Complexity Number of Personal Factors/Comorbidities 1-2 Number of Body Systems Impaired 1-2 Clinical Presentation at Evaluation Stable Impairments Impairments Activity Tolerance,Functional Activities,Functional Mobility ,Gait,Pain,Posture,ROM, Sensation,Soft Tissue Mobility ,Strength Goals Five Impairment ROM Impairment L lumbar lateral flexion 75% of ROM, painful Alf Goal (LTG) Pt will increase L lateral flexoin AROM to >75% with pain of 3 or less in order to demonstrate improved activity tolerance and QOL LTG Duration 6 weeks Four Impairment ROM Impairment Trunk fwd flexion ROM 80% or fingers 8 from ground in standing Alf Goal (LTG) Pt will improve trunk flexion ROM to <8 from fingertips to the ground in order to demonstrate increased trunk ROM and flexibility for return to sports LTG Duration 6 weeks Three Impairment ROM Impairment B hamstring length 130 deg Alf Goal (LTG) Pt will improve B hamstring length to at least 150 deg in order for better activity tolerance LTG Duration 6 weeks Two Impairment strength Impairment plank on elbows 30 seconds Controller Operations And Hr Manager Goal (LTG) Pt will be able to perform a plank on elbows for at least 45 seconds in order to demonstrate improved core and lumbar extensor strength LTG Duration 6 weeks One Impairment function Impairment Oswestry 20/50 Controller Operations And Hr Manager Goal (LTG) Pt will decrease Oswestry score by at least 9 points (1 MCID) in order to demonstrate improved activity tolerance and ROM. LTG Duration 6 weeks Assessment Summary Assessment Pt is a 58 y.o. male presenting with B lumbar spine pain beginning in October 2023. Pain is discogenic in nature, currently L>R, localized to the trunk. Pt has a hx of low back pain and a previous microdiscectomy. Lumbar flexion and L lateral flexion are the most limited ROM, with pain only with L lateral flexion. Pain is reproduced during hip extension, trunk extension in prone with hip extension, and during hip IR AROM. He is tender to palpation along L4- L5 spinous processes and demonstrates lumbar paraspinal muscle spasms. Pt has positive straight leg raise test and symptoms are relieved with distraction. Pt is very active and demonstrates good abdominal and trunk strength; he is able to perform a plank for 30 seconds. Pt has limited bilateral hamstring length, and BLE strength is within functional limits. Pt has decreased light touch sensation along R hip and glute after original episode of pain. Pt issued HEP with seated hamstring stretch. PT educated pt on modalities for pain relief, HEP, exam findings, POC; pt verbalizes understanding. Pt would benefit from skilled PT for progressive core/lumbar spine strengthening, spine and BLE mobility, education regarding body mechanics and activity modification in order to decrease pain symptoms, improve activity tolerance, and return to PLOF. Physical Therapy Plan Frequency and Duration Frequency of Treatment 1x/Week Duration of treatment (weeks) 6 Plan of Care Start Date 12/22/23 Plan of Care End Date 02/02/24 Therapeutic Interventions Therapeutic Interventions Aquatic Therapy,Gait Training, Home Exercise Program,Joint Mobilizations,Manual Therapy, Neuromuscular Re-education, Orthotic/Prosthetic Management ,Patient/Caregiver Education, Self-Care/Home Management, Sensory Integration,Soft Tissue Mobilization,Taping, Therapeutic Activities, Therapeutic Exercises Modalities Cold Pack/Ice Massage,Electric Stimulation,Hot Packs, Traction- Mechanical, Ultrasound,Vasopneumatic Devices Next Visit Focus/Plan Next Note Type Treatment Note Next Visit Plan Hamstring stretch, flexion- based strengthening (knee to chest with sb, bridge >SL bridge), core Manual: lumbar spine grade II, soft tissue, STM hamstrings and paraspinals, glutes; possible hip mobilizations Plan of Care Dates Plan of Care Start Date 12/22/23 Plan of Care End Date 02/02/24 Electronically Signed by: Leslie Conn, PT 12/22/23 3065 If you are in agreement with this Plan of Care, please return a signed and dated copy. I have reviewed this Plan of Care and certify that the skilled therapy services above are required to meet the patient?s needs. Physician Signature Date Printed Name and Credentials Clinical Instructor Signature Printed Name and Credentials
--- NOTE | 2023-12-26 12:01 | PT.OTN ---
Current Diagnoses Radiculopathy, lumbar region (12/26/23) Low back pain, unspecified (12/26/23) Anesthesia of skin (12/26/23) Other specified postprocedural states (12/26/23) Physical Therapy Treatment Note PT-OP-A Visit Information Start: 12/22/23 12:14 Freq: Status: Active Protocol: Document 12/26/23 08:14 NM (Rec: 12/26/23 09:07 NM [id number]) Out-Patient Physical Therapy Visit Information Visit Information Visit Type Treatment Note Visit Note Max 25 visits Visit Start Time 08:15 Visit Stop Time 09:00 Visit Number 2 Evaluation Information Evaluation Date 12/22/23 Precautions Precautions hx lumbar surgery PT-OP-B Current Condition Start: 12/22/23 12:14 Freq: Status: Active Protocol: Document 12/22/23 13:06 NM (Rec: 12/22/23 14:19 NM [id number]) Current Condition History of Current Condition Onset Date October 2023 Current Complaints pain, muscle spasms, decreased activity tolerance History of Current Condition Pt presents with low back pain beginning in October 2023. His back just spasmed and led to unbelievable B pain. He reports that he was in bed; he was unable to sit up, he had to crawl out of bed and on the ground. He was unable to walk for 4 days, only crawl, reaching up he felt like a disc exploded. He had numbness and tingling in his R glute; numb 7-10 days in R hip/glute. He began vomiting He went to the ED, did a CT ( looks normal). He went home and a couple fo days later, everything felt fine. He reports that he has different symptoms now. Beltline pain ( just below) on the L side, beginning 2-3 days ago. He now feels like he's 95% better. He is using an inversion table , stretching, walking, exercise bike. He reports that he still has a little decreased sensation. Hx of back injuries in high school, Nov 2007 microdiscectomy L1-L2 . He is very active (snow mobile, mtn bike) PT-OP-C Subjective Start: 12/22/23 12:14 Freq: Status: Active Protocol: Document 12/26/23 08:14 NM (Rec: 12/26/23 09:03 NM [id number]) OP-PT Subjective Patient Comments Patient Comments Pt reports no pain today in his low back. He has been riding the stationary bike without difficulty. He reports no beltline pain, currently 99% better. He has been using the inversion table (guesses 160 deg) every 2-3 days. PT-OP-E Functional Tests Start: 12/22/23 12:14 Freq: Status: Active Protocol: Document 12/22/23 13:06 NM (Rec: 12/22/23 17:24 NM [id number]) Functional Tests 30 Second Sit to Stand Test Score 21 Comments no pain reported Other Forward Trunk Flexion Test Name of Test measured fingertips to floor, legs straight Score 8 Comment reports hamstring stretch PT-OP-F Manual Assessment Start: 12/22/23 12:14 Freq: Status: Active Protocol: Document 12/22/23 13:06 NM (Rec: 12/22/23 17:24 NM [id number]) Manual Assessments Soft Tissue Assessment Soft Tissue Mobility Assessment Decreased B hamstring length. Minimal soft tissue restrictions of B lumbar paraspinals, including QL/ erector spinae. Joint Mobility Assessment Joint Mobility Assessment Minimal tenderness reported with posterior-anterior springing of lumbar spinous processes near L4-L5, normal mobility. Full trunk mobility PT-OP-G Mobility & Gait Start: 12/22/23 12:14 Freq: Status: Active Protocol: Document 12/22/23 13:06 NM (Rec: 12/22/23 17:24 NM [id number]) OP Gait Assessment Gait Gait Assistance Required: Independent Distance (Feet) 150 Assistive Devices Assistive Device None Gait Deviations General Gait Pattern Lateral Trunk Lean Factors Limiting Gait Function Factors Limiting Gait Function Pain Comments Gait Comments Slight L trunk shift PT-OP-H Neuro Start: 12/22/23 12:14 Freq: Status: Active Protocol: Document 12/22/23 13:06 NM (Rec: 12/22/23 17:24 NM [id number]) Sensation Evaluation Gross Sensation Sensation Description Paresthesia Comments Summary Comments Decreased light touch sensation along R lateral hip and glute, all other dermatomes are bilaterally and equally intact to light touch sensation PT-OP-J Posture/Palpation/Skin Start: 12/22/23 12:14 Freq: Status: Active Protocol: Document 12/22/23 13:06 NM (Rec: 12/22/23 17:24 NM [id number]) Posture Evaluation Position Standing Evaluation View Lateral Head/C-Spine Posture Forward Head Thorax Posture (R) Prominent L-Spine Posture Increased Lordosis,Shifted Left Shoulder Posture (L) Forward,(R) Forward Pelvis Posture Anteriorly Tilted Weight Distribution Balanced Hip Posture (L) Externally Rotated,(R) Externally Rotated Knee Posture (L) Genu Valgus,(R) Genu Valgus Patellar Posture (L) Superior,(R) Superior Palpation Assessment Location Lumbar spine Palpation Location paraspinals, glutes Palpation Findings Soft Tissue Tightness,Spasm Palpation Details Lumbar paraspinals with mild spasm to palpation, L>R. Minimal tenderness at L4-L5, L >R Skin Assessment Incisional Assessment Incision Appearance/Comments Incision from previous surgery near lower lumbar spine PT-OP-K Range of Motion Start: 12/22/23 12:14 Freq: Status: Active Protocol: Document 12/22/23 13:06 NM (Rec: 12/22/23 17:24 NM [id number]) Lumbar Spine Range of Motion Lumbar Spine Active Percentage Testing Position Standing Flexion 80 Extension 100 Rotation Left 8 Rotation Right 8 Lateral Flexion Left 75 Lateral Flexion Right 100 ROM Limitations Soft Tissue Tightness,Pain Comments L lateral flexion to 75% of thigh, reproduces pain in L lumbar spine. Pain with returning to neutral after R lateral flexion. Reports hamstring stretch with lumbar flexion Hip Goniometric Range of Motion Hip ROM Limitations Comments B hamstring length: 130 deg PT-OP-L Special Tests Start: 12/22/23 12:14 Freq: Status: Active Protocol: Document 12/22/23 13:06 NM (Rec: 12/22/23 17:24 NM [id number]) Special Tests Lumbar Spine Special Tests Distraction Test Results + Comments symptom relief Straight Leg Raise Test Results + Comments bilaterally reproduces concordant pain Slump Test Results - Cantu/Quadrant Test Results - PT-OP-M Strength Start: 12/22/23 12:14 Freq: Status: Active Protocol: Document 12/22/23 13:06 NM (Rec: 12/22/23 17:24 NM [id number]) Trunk Strength Trunk Manual Muscle Testing Testing Position standing, supine Flexion 5 Normal Extension 5 Normal Rotation Left 5 Normal Rotation Right 5 Normal Lateral Flexion Left 5 Normal Lateral Flexion Right 5 Normal Comments No pain with resisted motions. 5/5 trunk flexion fwd/ obliques. Plank on elbows 30 sec before hips begin dropping . Prone trunk and extension reproduces pain Hip Strength Hip Manual Muscle Testing Right Flexion (L2) 5 Normal Extension (S1) 4 Good Abduction 5 Normal Adduction 5 Normal External Rotation 5 Normal Internal Rotation 5 Normal Comments No pain reproduced with resisted motion Left Flexion (L2) 5 Normal Extension (S1) 4 Good Abduction 4 Good Adduction 5 Normal External Rotation 5 Normal Internal Rotation 4 Good Comments Lumbar spine pain reproduced with extension and hip IR Knee Strength Knee Manual Muscle Testing Right Flexion (S2) 5 Normal Extension (L3) 5 Normal Left Flexion (S2) 5 Normal Extension (L3) 5 Normal Ankle/Foot Strength Ankle and Foot Manual Muscle Testing Left Dorsiflexion (L4) 5 Normal Plantarflexion (S1) 5 Normal Right Dorsiflexion (L4) 5 Normal Plantarflexion (S1) 5 Normal PT-OP-Q Treatments Start: 12/22/23 12:14 Freq: Status: Active Protocol: Document 12/26/23 08:14 NM (Rec: 12/26/23 09:03 NM [id number]) Therapeutic Exercises Supine Exercises Saurman Supine Exercise Name 1. bilateral march (lift/lower ), 2. unilateral march Side bilateral Equipment Used with TA activation Reps/Minutes 1.2x10 with brief hold; 2. 1x10 Comments cued for slow control, TA activation to maintain core stab piriformis stretch Supine Exercise Name into hip IR Side bilateral Reps/Minutes 1x60 Comments reports good glute stretch, not painful; L>R figure 4 stretch Side bilateral Reps/Minutes 1x60 Comments reports good hip ER stretch, not painful Knees to chest Supine Exercise Name 1. bilateral, 2. unilateral Side bilateral Reps/Minutes 1. 1x10 with brief hold, on orange SB; 2. 1x30 Comments reports good LS stretch, no pain reported Prone Exercises Bridge Prone Exercise Name Trialed- for extension Side bilateral Equipment Used with ppt. Pt with hands placed on hips to cue for ppt, push through heels Reps/Minutes 2x10 Comments reports a little minimal pinch at end range but not painful Quadruped Prone Exercise Name 1. cat cow, 2. hip ext from mat (small ROM- few inches from mat) Side bilateral Equipment Used cued for hip stab, prn tactile cues at hips Reps/Minutes 1. 1x10, 2. 2x10 Comments cued to not do child's pose as reproduce symptoms; painfree otherwise Sitting Exercises sciatic nerve glide Sitting Exercise Name head/trunk flex with knee flex Side bilateral Reps/Minutes 1x10 ea Comments reports no pain, no symptom provocation Hamstring stretch Sitting Exercise Name d/c due to increased nerve tension Manual Therapy Treatment Soft Tissue Mobilization Lumbar Spine Body Location B QL, paraspinals (R>L) Mobilization Type Oscillations Intensity/Depth Moderate Body Position Prone Comments Pt with no spasms but with soft tissue tightness R>L along paraspinals, magalie QL. Performed oscillations of soft tissue to promote tissue relaxation post exercise, decrease pain symptoms when present. Glutes Mobilization Type Oscillations,Sustained Pressure Intensity/Depth Moderate Body Position Prone Comments Reports tenderness at R glute, near external rotators and greater trochanter. No tenderness on L side. No spasms but demos tissue tightness/restriction with palpation and sustained pressure, decreased after sustained pressure and oscillations. PT educted pt briefly on soft tissue mobilization with small ball. Joint Mobilizations Lumbar spine Joint L1-L5 Grade II Body Position Prone Reps/Duration 1x10 ea Comments Trialed for gentle pain relief post exercise, grade II along spinous processes and transverse processes. Pt reports no tenderness along spine or slightly lateral. Self-Care/Home Management Treatment Education Patient Education Home Exercise Program,Joint Protection,Pain Management Other Education 5 min- HEP: quadruped hip ext, piriformis stretch, cat/cow, supine marching 90/90 with post pelvic tilt, single knee to chest stretch. Educated on anatomy and physiology of disc , disc injuries, inflammation with episodic pain, and joint protection; instructed on modalities for pain relief PT-OP-T Assessment and Plan Start: 12/22/23 12:14 Freq: Status: Active Protocol: Document 12/26/23 08:14 NM (Rec: 12/26/23 09:03 NM [id number]) Physical Therapy Assessment Goals Five Impairment ROM Impairment L lumbar lateral flexion 75% of ROM, painful Detention Goal (LTG) Pt will increase L lateral flexoin AROM to >75% with pain of 3 or less in order to demonstrate improved activity tolerance and QOL LTG Duration 6 weeks Four Impairment ROM Impairment Trunk fwd flexion ROM 80% or fingers 8 from ground in standing [employer] Goal (LTG) Pt will improve trunk flexion ROM to <8 from fingertips to the ground in order to demonstrate increased trunk ROM and flexibility for return to sports LTG Duration 6 weeks Three Impairment ROM Impairment B hamstring length 130 deg [employer] Goal (LTG) Pt will improve B hamstring length to at least 150 deg in order for better activity tolerance LTG Duration 6 weeks Two Impairment strength Impairment plank on elbows 30 seconds Detention Goal (LTG) Pt will be able to perform a plank on elbows for at least 45 seconds in order to demonstrate improved core and lumbar extensor strength LTG Duration 6 weeks One Impairment function Impairment Oswestry 20/50 Detention Goal (LTG) Pt will decrease Oswestry score by at least 9 points (1 MCID) in order to demonstrate improved activity tolerance and ROM. LTG Duration 6 weeks Assessment Summary Assessment Pt presents with significant improvement in symptoms since IE on Monday, reporting 99% better with only occasional instances of L beltline pain . Initiated gentle core strengthening into flexion bias, hip extension, spine mobility, and glute stretching . Pt educated on posterior pelvic tilt for pelvic stability and deep core activation for stabilization during bridge and quadruped in order to limit hip rotation compensations. Pt demos B glute weakness during hip ext exercise and standing posture. Discontinued hamstring stretch due to brief aggravation of symptoms during session, which decreased with sciatic nerve glide. Pt has tendency to move into stretching positions between exercises, and switches between lumbar extension/ flexion positions without increased pain or symptoms. During manual, pt tolerated grade II mobilizations to lumbar spine well for pain reduction; has tenderness with R glute soft tissue mobilization. Pt would benefit from skilled PT for progressive BLE/lumbar muscle strengthening for better spine stabilization, in addition to education regarding body mechanics, anatomy and pain neuroscience education and activity modification during symptomatic periods in order to return to PLOF and improve QOL. Physical Therapy Plan Frequency and Duration Frequency of Treatment 1x/Week Duration of treatment (weeks) 6 Plan of Care Start Date 12/22/23 Plan of Care End Date 02/02/24 Therapeutic Interventions Therapeutic Interventions Aquatic Therapy,Gait Training, Home Exercise Program,Joint Mobilizations,Manual Therapy, Neuromuscular Re-education, Orthotic/Prosthetic Management ,Patient/Caregiver Education, Self-Care/Home Management, Sensory Integration,Soft Tissue Mobilization,Taping, Therapeutic Activities, Therapeutic Exercises Modalities Cold Pack/Ice Massage,Electric Stimulation,Hot Packs, Traction- Mechanical, Ultrasound,Vasopneumatic Devices Next Visit Focus/Plan Next Note Type Treatment Note Next Visit Plan Check response to nerve glide, HEP. Trial squat, lateral flex stretch/strengthening, hip ext strengthening, side steps, hip mobility
--- NOTE | 2024-01-01 11:47 | PT.OTN ---
Current Diagnoses Radiculopathy, lumbar region (01/01/24) Low back pain, unspecified (01/01/24) Anesthesia of skin (01/01/24) Other specified postprocedural states (01/01/24) Physical Therapy Treatment Note PT-OP-A Visit Information Start: 12/22/23 12:14 Freq: Status: Active Protocol: Document 01/01/24 08:18 NM (Rec: 01/01/24 09:02 NM [id number]) Out-Patient Physical Therapy Visit Information Visit Information Visit Type Treatment Note Visit Note Max 25 visits Visit Start Time 08:18 Visit Stop Time 09:00 Visit Number 3 Evaluation Information Evaluation Date 12/22/23 Precautions Precautions hx lumbar surgery PT-OP-B Current Condition Start: 12/22/23 12:14 Freq: Status: Active Protocol: Document 12/22/23 13:06 NM (Rec: 12/22/23 14:19 NM [id number]) Current Condition History of Current Condition Onset Date October 2023 Current Complaints pain, muscle spasms, decreased activity tolerance History of Current Condition Pt presents with low back pain beginning in October 2023. His back just spasmed and led to unbelievable B pain. He reports that he was in bed; he was unable to sit up, he had to crawl out of bed and on the ground. He was unable to walk for 4 days, only crawl, reaching up he felt like a disc exploded. He had numbness and tingling in his R glute; numb 7-10 days in R hip/glute. He began vomiting He went to the ED, did a CT ( looks normal). He went home and a couple fo days later, everything felt fine. He reports that he has different symptoms now. Beltline pain ( just below) on the L side, beginning 2-3 days ago. He now feels like he's 95% better. He is using an inversion table , stretching, walking, exercise bike. He reports that he still has a little decreased sensation. Hx of back injuries in high school, Nov 2007 microdiscectomy L1-L2 . He is very active (snow mobile, mtn bike) PT-OP-C Subjective Start: 12/22/23 12:14 Freq: Status: Active Protocol: Document 01/01/24 08:18 NM (Rec: 01/01/24 09:02 NM [id number]) OP-PT Subjective Patient Comments Patient Comments Pt reports no pain in his low back and significant improvement in symptoms since last session. He has been compliant with HEP and reports no difficulty with exercises. States hamstrings are tight. Has been using inversion table, which he finds helpful. He is planning on attempting a bike ride later this week PT-OP-E Functional Tests Start: 12/22/23 12:14 Freq: Status: Active Protocol: Document 12/22/23 13:06 NM (Rec: 12/22/23 17:24 NM [id number]) Functional Tests 30 Second Sit to Stand Test Score 21 Comments no pain reported Other Forward Trunk Flexion Test Name of Test measured fingertips to floor, legs straight Score 8 Comment reports hamstring stretch PT-OP-F Manual Assessment Start: 12/22/23 12:14 Freq: Status: Active Protocol: Document 12/22/23 13:06 NM (Rec: 12/22/23 17:24 NM [id number]) Manual Assessments Soft Tissue Assessment Soft Tissue Mobility Assessment Decreased B hamstring length. Minimal soft tissue restrictions of B lumbar paraspinals, including QL/ erector spinae. Joint Mobility Assessment Joint Mobility Assessment Minimal tenderness reported with posterior-anterior springing of lumbar spinous processes near L4-L5, normal mobility. Full trunk mobility PT-OP-G Mobility & Gait Start: 12/22/23 12:14 Freq: Status: Active Protocol: Document 12/22/23 13:06 NM (Rec: 12/22/23 17:24 NM [id number]) OP Gait Assessment Gait Gait Assistance Required: Independent Distance (Feet) 150 Assistive Devices Assistive Device None Gait Deviations General Gait Pattern Lateral Trunk Lean Factors Limiting Gait Function Factors Limiting Gait Function Pain Comments Gait Comments Slight L trunk shift PT-OP-H Neuro Start: 12/22/23 12:14 Freq: Status: Active Protocol: Document 12/22/23 13:06 NM (Rec: 12/22/23 17:24 NM [id number]) Sensation Evaluation Gross Sensation Sensation Description Paresthesia Comments Summary Comments Decreased light touch sensation along R lateral hip and glute, all other dermatomes are bilaterally and equally intact to light touch sensation PT-OP-J Posture/Palpation/Skin Start: 12/22/23 12:14 Freq: Status: Active Protocol: Document 12/22/23 13:06 NM (Rec: 12/22/23 17:24 NM [id number]) Posture Evaluation Position Standing Evaluation View Lateral Head/C-Spine Posture Forward Head Thorax Posture (R) Prominent L-Spine Posture Increased Lordosis,Shifted Left Shoulder Posture (L) Forward,(R) Forward Pelvis Posture Anteriorly Tilted Weight Distribution Balanced Hip Posture (L) Externally Rotated,(R) Externally Rotated Knee Posture (L) Genu Valgus,(R) Genu Valgus Patellar Posture (L) Superior,(R) Superior Palpation Assessment Location Lumbar spine Palpation Location paraspinals, glutes Palpation Findings Soft Tissue Tightness,Spasm Palpation Details Lumbar paraspinals with mild spasm to palpation, L>R. Minimal tenderness at L4-L5, L >R Skin Assessment Incisional Assessment Incision Appearance/Comments Incision from previous surgery near lower lumbar spine PT-OP-K Range of Motion Start: 12/22/23 12:14 Freq: Status: Active Protocol: Document 12/22/23 13:06 NM (Rec: 12/22/23 17:24 NM [id number]) Lumbar Spine Range of Motion Lumbar Spine Active Percentage Testing Position Standing Flexion 80 Extension 100 Rotation Left 8 Rotation Right 8 Lateral Flexion Left 75 Lateral Flexion Right 100 ROM Limitations Soft Tissue Tightness,Pain Comments L lateral flexion to 75% of thigh, reproduces pain in L lumbar spine. Pain with returning to neutral after R lateral flexion. Reports hamstring stretch with lumbar flexion Hip Goniometric Range of Motion Hip ROM Limitations Comments B hamstring length: 130 deg PT-OP-L Special Tests Start: 12/22/23 12:14 Freq: Status: Active Protocol: Document 12/22/23 13:06 NM (Rec: 12/22/23 17:24 NM [id number]) Special Tests Lumbar Spine Special Tests Distraction Test Results + Comments symptom relief Straight Leg Raise Test Results + Comments bilaterally reproduces concordant pain Slump Test Results - Cantu/Quadrant Test Results - PT-OP-M Strength Start: 12/22/23 12:14 Freq: Status: Active Protocol: Document 12/22/23 13:06 NM (Rec: 12/22/23 17:24 NM [id number]) Trunk Strength Trunk Manual Muscle Testing Testing Position standing, supine Flexion 5 Normal Extension 5 Normal Rotation Left 5 Normal Rotation Right 5 Normal Lateral Flexion Left 5 Normal Lateral Flexion Right 5 Normal Comments No pain with resisted motions. 5/5 trunk flexion fwd/ obliques. Plank on elbows 30 sec before hips begin dropping . Prone trunk and extension reproduces pain Hip Strength Hip Manual Muscle Testing Right Flexion (L2) 5 Normal Extension (S1) 4 Good Abduction 5 Normal Adduction 5 Normal External Rotation 5 Normal Internal Rotation 5 Normal Comments No pain reproduced with resisted motion Left Flexion (L2) 5 Normal Extension (S1) 4 Good Abduction 4 Good Adduction 5 Normal External Rotation 5 Normal Internal Rotation 4 Good Comments Lumbar spine pain reproduced with extension and hip IR Knee Strength Knee Manual Muscle Testing Right Flexion (S2) 5 Normal Extension (L3) 5 Normal Left Flexion (S2) 5 Normal Extension (L3) 5 Normal Ankle/Foot Strength Ankle and Foot Manual Muscle Testing Left Dorsiflexion (L4) 5 Normal Plantarflexion (S1) 5 Normal Right Dorsiflexion (L4) 5 Normal Plantarflexion (S1) 5 Normal PT-OP-Q Treatments Start: 12/22/23 12:14 Freq: Status: Active Protocol: Document 01/01/24 08:18 NM (Rec: 01/01/24 09:02 NM [id number]) Therapeutic Exercises Supine Exercises bridge Supine Exercise Name trialed: single leg bridge Side bilateral Resistance AROM Equipment Used with ppt Reps/Minutes 1x10 ea LE Comments reports no pain or discomfort; small ROM due to fatigue and difficulty figure 4 stretch Side bilateral Reps/Minutes 2x30 Comments reports good hip ER stretch, not painful Knees to chest Supine Exercise Name unilateral Side bilateral Reps/Minutes 2x30 ea Comments reports good LS stretch, no pain or discomfort Prone Exercises Bridge Prone Exercise Name trialed: single leg bridge Side bilateral Equipment Used with ppt Reps/Minutes 1x10 ea LE Comments reports no pain or discomfort; small ROM due to fatigue, difficulty Sitting Exercises hip ER Sitting Exercise Name added to HEP Side bilateral Resistance lvl 2 teal tb around thighs Equipment Used small teal ball between ankles Reps/Minutes 2x10 Comments reports difficult, acosta in glutes hip IR Sitting Exercise Name added to HEP Side bilateral Resistance lvl 2 teal tb at ankles Equipment Used small teal ball between knees Reps/Minutes 2x10 Comments reports difficult foam roller Sitting Exercise Name myofascial release of glutes, hamstrings Side bilateral Equipment Used whole foam roller Reps/Minutes 2 min ea LE Comments added to HEP (not on HO) sciatic nerve glide Sitting Exercise Name head/trunk flex with knee flex Side bilateral Reps/Minutes 1x10 ea Comments reports no pain, no symptom provocation; reports pulling Standing Exercises lumbar lateral flexion Standing Exercise Name AROM>gentle stretch Side bilateral Equipment Used wall (hand on wall, leg crossed behind other) Reps/Minutes 5x5 Comments reports stretch, no pain side steps Standing Exercise Name added to HEP Side bilateral Resistance lvl 2 teal tb around ankles Reps/Minutes 2 sets x 15 Comments cued for greater glute activation with hip hinge; reports burn Therapeutic Activity Therapeutic Activity Hip hinge Comments 1. seated hip hinge, 1x10 Reports pulling with increased flexion, so decreased ROM which improved symptoms. 2. standing hip hinge, 2x10 No symptoms, cued for hip movement, limit knee flexion only. Plinth behind for target Self-Care/Home Management Treatment Education Patient Education Home Exercise Program,Joint Protection Other Education Education on use of hip hinge during lifting or bending. HEP : single leg bridge, seated hip IR and ER, side steps with band around ankles PT-OP-T Assessment and Plan Start: 12/22/23 12:14 Freq: Status: Active Protocol: Document 01/01/24 08:18 NM (Rec: 01/01/24 09:02 NM [id number]) Physical Therapy Assessment Goals Five Impairment ROM Impairment L lumbar lateral flexion 75% of ROM, painful Rotary Operator Goal (LTG) Pt will increase L lateral flexoin AROM to >75% with pain of 3 or less in order to demonstrate improved activity tolerance and QOL 01/01/24: 100% of ROM, comparable, no pain reported LTG Duration 6 weeks MET Four Impairment ROM Impairment Trunk fwd flexion ROM 80% or fingers 8 from ground in standing Group Home Goal (LTG) Pt will improve trunk flexion ROM to <8 from fingertips to the ground in order to demonstrate increased trunk ROM and flexibility for return to sports 01/01/24: 9, knees straight; not painful LTG Duration 6 weeks Three Impairment ROM Impairment B hamstring length 130 deg Rotary Operator Goal (LTG) Pt will improve B hamstring length to at least 150 deg in order for better activity tolerance LTG Duration 6 weeks Two Impairment strength Impairment plank on elbows 30 seconds Rotary Operator Goal (LTG) Pt will be able to perform a plank on elbows for at least 45 seconds in order to demonstrate improved core and lumbar extensor strength LTG Duration 6 weeks One Impairment function Impairment Oswestry 20/50 Group Home Goal (LTG) Pt will decrease Oswestry score by at least 9 points (1 MCID) in order to demonstrate improved activity tolerance and ROM. LTG Duration 6 weeks Assessment Summary Assessment Pt continues to report improvement in symptoms since IE, but reports increased sciatic symptoms briefly at beginning of session near proximal hamstring. Reports symptom improvement after foam rolling hamstrings, then followed by seated sciatic n glide and single leg bridge to mobilize nerve and strengthen hamstrings. Initiated hip rotation strengthening, lumbar paraspinal lateral flexion mobility, and standing glute strengthening for greater lumbar spine support and to progress pt toward more functional tasks. Pt requires cues for correct execution and to limit 3D movement to prevent facet pain; cued also for greater glute activation to offload strain on low back. Overall, tolerates new exercises well without any increased symptoms. Initiated hip hinge for further lumbar strengthening, hamstring lengthening, and to retrain functional movement patterns to facilitate safe body mechanics. Pt is progressing well toward goals, met lumbar side bending goal today. If pt continues to progress, will plan for discharge to independent exercise in future sessions; pt verablizes agreement. Pt would benefit from skilled PT for continued lumbar spine/glute strengthening in addition to auto body worker re-education in order to limit pain symptoms, promote safety during ADLs, and return to PLOF. Physical Therapy Plan Frequency and Duration Frequency of Treatment 1x/Week Duration of treatment (weeks) 6 Plan of Care Start Date 12/22/23 Plan of Care End Date 02/02/24 Therapeutic Interventions Therapeutic Interventions Aquatic Therapy,Gait Training, Home Exercise Program,Joint Mobilizations,Manual Therapy, Neuromuscular Re-education, Orthotic/Prosthetic Management ,Patient/Caregiver Education, Self-Care/Home Management, Sensory Integration,Soft Tissue Mobilization,Taping, Therapeutic Activities, Therapeutic Exercises Modalities Cold Pack/Ice Massage,Electric Stimulation,Hot Packs, Traction- Mechanical, Ultrasound,Vasopneumatic Devices Next Visit Focus/Plan Next Note Type Treatment Note Next Visit Plan Check response to nerve glide, HEP. Trial squat, test plank. Continue hip hinge, lateral flex stretch/strengthening, glute and lumbar strengthening , side steps, hip mobility
--- NOTE | 2024-01-30 15:39 | PT-OP ANOTE ---
PT called on 01/29 at 1540 and spoke to pt. Pt has canceled last several appointments including last appt before POC expires on 02/01. Pt reports that he is doing well and back to lots of activity without limitation. He reports that he is feeling stronger and doing all of the stretches. Pt enquired about extension without coming back in for visit in case of exacerbation, but PT informed pt that he would need to come in prior to POC expiring to renew plan, which he did not want to do. Pt requesting to discharge from PT at this time. PT educated pt on following up with PCP if symptoms return, worsen, or change and/or for new referral to PT as needed. Pt verbalizes agreement
--- NOTE | 2024-04-30 08:46 | PT.OPDS ---
Current Diagnoses Radiculopathy, lumbar region (01/01/24) Low back pain, unspecified (01/01/24) Anesthesia of skin (01/01/24) Other specified postprocedural states (01/01/24) Visit Care Team Role Provider Type Francisco Guzman MD Attending Provider Physician Family Provider Primary Care Provider Referring Provider Specialty: [facility] Practice Address: [address] [place] [address], [address], [place] [facility] Email: [email or web address] Visit Number Visit Number 3 Discharge Summary PT-OP-B Current Condition Start: 12/22/23 12:14 Freq: Status: Active Protocol: Document 12/22/23 13:06 NM (Rec: 12/22/23 14:19 NM [id number]) Current Condition History of Current Condition Onset Date October 2023 Current Complaints pain, muscle spasms, decreased activity tolerance History of Current Condition Pt presents with low back pain beginning in October 2023. His back just spasmed and led to unbelievable B pain. He reports that he was in bed; he was unable to sit up, he had to crawl out of bed and on the ground. He was unable to walk for 4 days, only crawl, reaching up he felt like a disc exploded. He had numbness and tingling in his R glute; numb 7-10 days in R hip/glute. He began vomiting He went to the ED, did a CT ( looks normal). He went home and a couple fo days later, everything felt fine. He reports that he has different symptoms now. Beltline pain ( just below) on the L side, beginning 2-3 days ago. He now feels like he's 95% better. He is using an inversion table , stretching, walking, exercise bike. He reports that he still has a little decreased sensation. Hx of back injuries in high school, Nov 2007 microdiscectomy L1-L2 . He is very active (snow mobile, mtn bike) PT-OP-C Subjective Start: 12/22/23 12:14 Freq: Status: Active Protocol: Document 01/01/24 08:18 NM (Rec: 01/01/24 09:02 NM [id number]) OP-PT Subjective Patient Comments Patient Comments Pt reports no pain in his low back and significant improvement in symptoms since last session. He has been compliant with HEP and reports no difficulty with exercises. States hamstrings are tight. Has been using inversion table, which he finds helpful. He is planning on attempting a bike ride later this week PT-OP-E Functional Tests Start: 12/22/23 12:14 Freq: Status: Active Protocol: Document 12/22/23 13:06 NM (Rec: 12/22/23 17:24 NM [id number]) Functional Tests 30 Second Sit to Stand Test Score 21 Comments no pain reported Other Forward Trunk Flexion Test Name of Test measured fingertips to floor, legs straight Score 8 Comment reports hamstring stretch PT-OP-F Manual Assessment Start: 12/22/23 12:14 Freq: Status: Active Protocol: Document 12/22/23 13:06 NM (Rec: 12/22/23 17:24 NM [id number]) Manual Assessments Soft Tissue Assessment Soft Tissue Mobility Assessment Decreased B hamstring length. Minimal soft tissue restrictions of B lumbar paraspinals, including QL/ erector spinae. Joint Mobility Assessment Joint Mobility Assessment Minimal tenderness reported with posterior-anterior springing of lumbar spinous processes near L4-L5, normal mobility. Full trunk mobility PT-OP-G Mobility & Gait Start: 12/22/23 12:14 Freq: Status: Active Protocol: Document 12/22/23 13:06 NM (Rec: 12/22/23 17:24 NM [id number]) OP Gait Assessment Gait Gait Assistance Required: Independent Distance (Feet) 150 Assistive Devices Assistive Device None Gait Deviations General Gait Pattern Lateral Trunk Lean Factors Limiting Gait Function Factors Limiting Gait Function Pain Comments Gait Comments Slight L trunk shift PT-OP-H Neuro Start: 12/22/23 12:14 Freq: Status: Active Protocol: Document 12/22/23 13:06 NM (Rec: 12/22/23 17:24 NM [id number]) Sensation Evaluation Gross Sensation Sensation Description Paresthesia Comments Summary Comments Decreased light touch sensation along R lateral hip and glute, all other dermatomes are bilaterally and equally intact to light touch sensation PT-OP-J Posture/Palpation/Skin Start: 12/22/23 12:14 Freq: Status: Active Protocol: Document 12/22/23 13:06 NM (Rec: 12/22/23 17:24 NM [id number]) Posture Evaluation Position Standing Evaluation View Lateral Head/C-Spine Posture Forward Head Thorax Posture (R) Prominent L-Spine Posture Increased Lordosis,Shifted Left Shoulder Posture (L) Forward,(R) Forward Pelvis Posture Anteriorly Tilted Weight Distribution Balanced Hip Posture (L) Externally Rotated,(R) Externally Rotated Knee Posture (L) Genu Valgus,(R) Genu Valgus Patellar Posture (L) Superior,(R) Superior Palpation Assessment Location Lumbar spine Palpation Location paraspinals, glutes Palpation Findings Soft Tissue Tightness,Spasm Palpation Details Lumbar paraspinals with mild spasm to palpation, L>R. Minimal tenderness at L4-L5, L >R Skin Assessment Incisional Assessment Incision Appearance/Comments Incision from previous surgery near lower lumbar spine PT-OP-K Range of Motion Start: 12/22/23 12:14 Freq: Status: Active Protocol: Document 12/22/23 13:06 NM (Rec: 12/22/23 17:24 NM [id number]) Lumbar Spine Range of Motion Lumbar Spine Active Percentage Testing Position Standing Flexion 80 Extension 100 Rotation Left 8 Rotation Right 8 Lateral Flexion Left 75 Lateral Flexion Right 100 ROM Limitations Soft Tissue Tightness,Pain Comments L lateral flexion to 75% of thigh, reproduces pain in L lumbar spine. Pain with returning to neutral after R lateral flexion. Reports hamstring stretch with lumbar flexion Hip Goniometric Range of Motion Hip ROM Limitations Comments B hamstring length: 130 deg PT-OP-L Special Tests Start: 12/22/23 12:14 Freq: Status: Active Protocol: Document 12/22/23 13:06 NM (Rec: 12/22/23 17:24 NM [id number]) Special Tests Lumbar Spine Special Tests Distraction Test Results + Comments symptom relief Straight Leg Raise Test Results + Comments bilaterally reproduces concordant pain Slump Test Results - Cantu/Quadrant Test Results - PT-OP-M Strength Start: 12/22/23 12:14 Freq: Status: Active Protocol: Document 12/22/23 13:06 NM (Rec: 12/22/23 17:24 NM [id number]) Trunk Strength Trunk Manual Muscle Testing Testing Position standing, supine Flexion 5 Normal Extension 5 Normal Rotation Left 5 Normal Rotation Right 5 Normal Lateral Flexion Left 5 Normal Lateral Flexion Right 5 Normal Comments No pain with resisted motions. 5/5 trunk flexion fwd/ obliques. Plank on elbows 30 sec before hips begin dropping . Prone trunk and extension reproduces pain Hip Strength Hip Manual Muscle Testing Right Flexion (L2) 5 Normal Extension (S1) 4 Good Abduction 5 Normal Adduction 5 Normal External Rotation 5 Normal Internal Rotation 5 Normal Comments No pain reproduced with resisted motion Left Flexion (L2) 5 Normal Extension (S1) 4 Good Abduction 4 Good Adduction 5 Normal External Rotation 5 Normal Internal Rotation 4 Good Comments Lumbar spine pain reproduced with extension and hip IR Knee Strength Knee Manual Muscle Testing Right Flexion (S2) 5 Normal Extension (L3) 5 Normal Left Flexion (S2) 5 Normal Extension (L3) 5 Normal Ankle/Foot Strength Ankle and Foot Manual Muscle Testing Left Dorsiflexion (L4) 5 Normal Plantarflexion (S1) 5 Normal Right Dorsiflexion (L4) 5 Normal Plantarflexion (S1) 5 Normal PT-OP-T Assessment and Plan Start: 12/22/23 12:14 Freq: Status: Active Protocol: Document 04/30/24 08:42 NM (Rec: 04/30/24 08:46 NM [id number]) Physical Therapy Assessment Goals Five Impairment ROM Impairment L lumbar lateral flexion 75% of ROM, painful Embedded Engineer Goal (LTG) Pt will increase L lateral flexoin AROM to >75% with pain of 3 or less in order to demonstrate improved activity tolerance and QOL 01/01/24: 100% of ROM, comparable, no pain reported LTG Duration 6 weeks MET Four Impairment ROM Impairment Trunk fwd flexion ROM 80% or fingers 8 from ground in standing Usp Goal (LTG) Pt will improve trunk flexion ROM to <8 from fingertips to the ground in order to demonstrate increased trunk ROM and flexibility for return to sports 01/01/24: 9, knees straight; not painful LTG Duration 6 weeks Three Impairment ROM Impairment B hamstring length 130 deg Embedded Engineer Goal (LTG) Pt will improve B hamstring length to at least 150 deg in order for better activity tolerance LTG Duration 6 weeks Two Impairment strength Impairment plank on elbows 30 seconds Embedded Engineer Goal (LTG) Pt will be able to perform a plank on elbows for at least 45 seconds in order to demonstrate improved core and lumbar extensor strength LTG Duration 6 weeks One Impairment function Impairment Oswestry 20/50 Embedded Engineer Goal (LTG) Pt will decrease Oswestry score by at least 9 points (1 MCID) in order to demonstrate improved activity tolerance and ROM. LTG Duration 6 weeks Assessment Summary Assessment Pt was evaluated in November 2023 for back pain. He attended 2 sessions after evaluation. Pt was progressing toward goals and managing symptoms well. On 01/30/24, PT spoke to pt on phone as pt had called previously to cancel all appt. He states he is doing well, compliant with stretches, and his activity was not limited by pain. Pt's plan of care on 02/02/24 , not wanting to renew plan of care. PT informed pt that he would need new referral to PT if wanting to continue in future. Also educated pt on following up with PCP if symptoms return/change/worsen. Pt verbalizes agreement and will be discharged from PT. Physical Therapy Plan Discharge Physical Therapy Discharge Reasons Patient Request Discharge Comments Pt called to cancel remaining appt Next Visit Focus/Plan Next Visit Plan Discharge from PT
== END 2024-05-09 10:14 | disposition home or self-care (01) ==
LOC: PHYS 08:15
PROVIDERS: Family Provider Family Medicine; PCP Family Medicine; Referring Provider Family Medicine; Visit Provider Family Medicine
DX: Z98.890 Other specified postprocedural states (principal); R20.0 Anesthesia of skin; M54.16 Radiculopathy, lumbar region; M54.50 Low back pain, unspecified
CPT/HCPCS: 97110; 97140; 97161; 97530; 97535